=== PATIENT | female | born 1985 | race Caucasian/White ===

== ENCOUNTER 2024-03-09 07:48 | Outpatient (CLI) | payer OTHER, SELFPAY ==
--- NOTE | ~2024-03-09 | US_ITS ---
Limited Abdominal Sonogram: Real-time sonographic imaging of the right upper quadrant was performed. Clinical History: Right upper quadrant pain Findings: The liver appears echogenic, with no evidence of mass lesion or bile duct dilatation. Main portal vein demonstrates normal direction of flow. The gallbladder is well distended, and-is probabl y 5 mm gallbladder wall polyp. The common bile duct measures 4 mm. The visualized pancreas, aorta, a nd IVC are unremarkable. Right kidney measures 9.4 cm in length, without evidence of hydronephrosis o r renal stone. Impression: Diffuse fatty infiltration of the liver. Probable 5 mm gallbladder wall polyp. Reviewed, dictated and finalized at location M. AL RESIDENT Impression: Diffuse fatty infiltration of the liver. Probable 5 mm gallbladder wall polyp.
== END 2024-03-09 07:49 | disposition home or self-care (01) ==
LOC: MICIMG 07:53
DX: R10.11 Right upper quadrant pain (principal); K76.0 Fatty (change of) liver, not elsewhere classified
CPT/HCPCS: 76705

== ENCOUNTER 2024-11-21 18:06 | Emergency (ER) | payer OTHER, SELFPAY ==
[2024-11-21] VITALS (7 sets, daily range): BP systolic 118–135; BP diastolic 64–76; PULSE 64–70; RESP 12–19; TEMP 36.8; O2SAT 100
--- NOTE | ~2024-11-21 | XR_ITS ---
EXAMINATION: XR chest 2V Exam Date/Time: 11/21/2024 18:41 CDT HISTORY: cp Comparison: None. RESULT: Lines, tubes, and devices: None. Lungs and pleura: Clear. Cardiomediastinal silhouette: Normal. Other: No acute osseous or upper abdominal finding. IMPRESSION: No acute cardiopulmonary process. Reviewed, dictated and finalized at location K.
--- OUTSIDE RECORDS SUMMARY | 2024-11-21 18:10 | XMS_ITS | Clinical Summary ---
Author Organization [facility] Address [address] [facility] [place] [address] Care Team Providers Care Transit Bus Operator Name Role Phone No, Physician Primary Care Provider [phone] Allergies No known active allergies Medications acetaminophen (TYLENOL) 500 mg tablet Take 1 tablet (500 mg total) by mouth daily as needed 04/19/2023 Active multivitamin tablet Take 1 tablet by mouth daily Active Active Problems Problem Noted Date Diagnosed Date Gallbladder polyp 10/29/2024 Encounters Date Type Department Care Team Description 11/21/2024 3:30 PM CDT Office Visit [facility] Care at [address] [address] Qing Mariano PA Other chest pain (Primary Dx); Shortness of breath 11/16/2024 10:45 AM CDT Office Visit [facility] at [address] [address] Dia Kinney NP Right foot pain (Primary Dx) 11/12/2024 9:00 AM CDT Ancillary Procedure [facility] Medical [facility] Imaging at [address] [address] Pain in toe of right foot from Last 3 Months Social History Tobacco Use Types Packs/Day Years Used Date Smoking Tobacco: Never Assessed Personal Safety Answer Date Recorded Have you ever been in or are you currently in a harmful physical or emotional relationship or is someone making you feel afraid or unsafe? 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 Gender Identity Not on file Sexual Orientation Not on file Obstetrics History Last Filed Vital Signs Vital Sign Reading Time Taken Comments Blood Pressure 120/74 11/21/2024 3:24 PM CDT Pulse 70 11/21/2024 3:24 PM CDT Temperature 36.5 C (97.7 F) 11/21/2024 3:24 PM CDT Respiratory Rate 16 11/21/2024 3:24 PM CDT Oxygen Saturation 99% 11/21/2024 3:24 PM CDT Inhaled Oxygen Concentration - - Weight 57.2 kg (126 lb) 11/21/2024 3:24 PM CDT Height 157.5 cm (5' 2) 11/16/2024 10:50 AM CDT Body Mass Index 23.05 11/16/2024 10:50 AM CDT Plan of Treatment Health Maintenance Due Date Last Done Comments Breast Cancer Screening-Mammogram 1984 Cervical Cancer Screening 1984 Depression Screening 1984 Hepatitis C Screening 1984 Varicella Vaccines (1 of 2 - 13+ 2-dose series) 1997 Hepatitis B Screening 2002 Regular Well Visit/Exam 18-64 2002 HPV Vaccines (1 - 3-dose SCD M series) 07/30/2011 Influenza Vaccine (#1) 2024 DTaP/Tdap/Td Vaccine (2 - Td or Tdap) 12/01/2033 12/02/2023 Pneumococcal vaccine <65 Aged Out No longer eligible based on patient's age to complete this topic Procedures Procedure Name Priority Date/Time Associated Diagnosis Comments XR TOE GREAT RIGHT Schedule Routine, Read Routine (OP Routine) 11/12/2024 8:41 AM CDT Pain in toe of right foot from Last 3 Months Results * XR Toe Great Right Minimum 2 Views (11/12/2024 8:41 AM CDT) Anatomical Region Laterality Modality Lower Extremities, Foot, Toes Right Di gital Radiography 11/12/2024 10:0 8 AM CDT Narrative 11/12/2024 10:11 AM CDT EXAM DESCRIPTION: XR TOE GREAT RIGHT MINIMUM 2 VIEWS REASON FOR STUDY: pain Pt complains of right great toe pain for a week with redness. No known injury. No prior surgery to the foot. TECHNIQUE: 3 radiographic view(s) of the right great toe . COMPARISON: None FINDINGS: BONES/JOINTS: There is no acute fracture, malalignment or osseous abnormality. The joint spaces are normal. SOFT TISSUES: Within normal limits. IMPRESSION: No definite acute bony abnormality in the right great toe. THIS IS AN ELECTRONICALLY VERIFIED FINAL REPORT 11/12/2024 10:11 AM - Electronically signed by Edmund Rodríguez M.D. RB T: Report ID: [id number] Reading Location: [id number] Procedure Note Edmund Rodríguez MD - 11/12/2024 EXAM DESCRIPTION: XR TOE GREAT RIGHT MINIMUM 2 VIEWS REASON FOR STUDY: pain Pt complains of right great toe pain for a week with redness. No knowninjury. No prior surgery to the foot. TECHNIQUE: 3 radiographic view(s) of the right great toe . COMPARISON: None FINDINGS: BONES/JOINTS: There is no acute fracture, malalignment orosseous abnormality. The joint spaces are normal. SOFT TISSUES: Within normal limits. IMPRESSION: No definite acute bony abnormality in the right great toe. THIS IS AN ELECTRONICALLY VERIFIED FINAL REPORT 11/12/2024 10:11 AM - Electronically signed by Edmund Rodríguez M.D. RB T: Report ID: [id number] Reading Location: [id number] us Maribell Balbuena ECHO VASC TECH IMG XR PROCEDURES Final Res ult from Last 3 Months Insurance [facility] STUDENT RESOURCES CHOICE PLUS [facility] HMO/PPO Address: [facility] [id number] [place] [address] Care Teams Transit Bus Operator Relationship Specialty Start Date End Date No, Physician PCP - General 04/20/23
--- OUTSIDE RECORDS SUMMARY | 2024-11-21 18:10 | XMS_ITS | Clinical Summary ---
Author Organization [facility] [employer] Address [address] [facility] [place] [address] Care Team Providers Care Lead Enterprise Architect Name Role Phone Unknown, Provider Primary Care Provider Unavaila ble Source Comments [facility] [employer],non-owned Affiliates and Associated Physician Practices is amultiple site organization consisting of ambulatory clinics and hospital sitesin [place], [place], [place] and [place]. This disclosure is being madepursuant to the Care Everywhere program and may not contain all information available regarding this patient. Last updated 18.[facility] [employer] Allergies No known active allergies Medications * Be aware that medications may not be up to date on this document. Alwaysverify current medications with the patient. Multiple Vitamin (Daily Vites) TABS Take 1 (one) tablet by mouth once daily Active acetaminophen (Tylenol) 500 MG tablet Take 1 (one) tablet by mouth once daily as needed 04/19/2023 Active Active Problems Problem Noted Date Diagnosed Date Gallbladder polyp 10/29/2024 Encounters Date Type Department Care Team Description 11/01/2024 8:00 AM CDT Office Visit [facility] - General Surgery [address], [address] [place] [address] Makenzie Riggins MD Gallbladder polyp (Primary Dx) 11/01/2024 Travel from Last 3 Months Social History Tobacco Use Types Packs/Day Years Used Date Smoking Tobacco: Never Passive Smoke Exposure: Never Smokeless Tobacco: Never Tobacco Cessation:Counseling Given: Not Answered Alcohol Use Standard Drinks/Week Comments Never 0 (1 standard drink = 0.6 oz pur e alcohol) Comments Unknown Sex and Gender Information Value Date Recorded Sex Assigned at Not on file Legal Sex Female 11:54 AM WORKFORCE MANAGEMENT ANALYST Gender Identity Not on file Sexual Orientation Not on file Last Filed Vital Signs Vital Sign Reading Time Taken Comments Blood Pressure 111/72 11/01/2024 8:02 AM CDT Pulse 60 11/01/2024 8:02 AM CDT Temperature 37 C (98.6 F) 11/01/2024 8:02 AM CDT Respiratory Rate 18 04/16/2024 8:55 AM WORKFORCE MANAGEMENT ANALYST Oxygen Saturation 97% 11/01/2024 8:02 AM CDT Inhaled Oxygen Concentration - - Weight 57.6 kg (127 lb) 11/01/2024 8:02 AM CDT Height 157.5 cm (5' 2) 11/01/2024 8:02 AM CDT Body Mass Index 23.23 11/01/2024 8:02 AM CDT Plan of Treatment Health Maintenance Due Date Last Done Comments LIPID TESTING 1984 MAMMOGRAM 1984 HIV SCREENING 07/30/1999 HEPATITIS C SCREENING 07/25/2002 DTAP/TDAP/TD VACCINES (1 - Tdap) 07/30/2003 HEPATITIS B VACCINE (1 of 3 - 19+ 3-dose series) 07/30/2003 HPV VACCINE (1 - 3-dose SCDM series) 07/30/2011 COVID-19 VACCINE ( - 2023-2 5 season) 2023 DEPRESSION SCREENING 04/25/2024 INFLUENZA VACCINE (#1) 2024 02/19/2021 PAP SMEAR 08/03/2025 08/03/2022 ZOSTER VACCINE (1 of 2) 2034 HIB VACCINE Aged Out No longer eligi ble based on patient's age to complete this topic MENINGOCOCCAL (Group B) VACC INE SHARED DECISION-MAKING Aged Out No longer eligibl e based on patient's age to complete this topic MENINGOCOCCAL GROUPS A/C/Y/W VACCINE Aged Out No longer eligible b ased on patient's age to complete this topic PNEUMOCOCCAL VACCINE Aged Out No long er eligible based on patient's age to complete this topic Insurance [facility] Care Teams Lead Enterprise Architect Relationship Specialty Start Date End Date Unknown, Provider PCP - General 06/17/24
--- OUTSIDE RECORDS SUMMARY | 2024-11-21 18:10 | XMS_ITS | Encounter Summary ---
Author Organization [facility] Address [address] [place] [address] Care Team Providers Care Dispensing Optician Name Role Phone No, Physician Primary Care Provider Reason for Visit * Reason Comments Chest Pain Chest pain and SOB t hat woke up last PM and reports her whole body was shaking and these sxs lasted a couple minutes. 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 Gender Identity Not on file Sexual Orientation Not on file documented as of this encounter Last Filed Vital Signs Vital Sign Reading Time Taken Comments Blood Pressure 120/74 11/21/2024 3:24 PM CDT Pulse 70 11/21/2024 3:24 PM CDT Temperature 36.5 C (97.7 F) 11/21/2024 3:24 PM CDT Respiratory Rate 16 11/21/2024 3:24 PM CDT Oxygen Saturation 99% 11/21/2024 3:24 PM CDT Inhaled Oxygen Concentration - - Weight 57.2 kg (126 lb) 11/21/2024 3:24 PM CDT Height - - Body Mass Index 23.05 11/16/2024 10:50 AM CDT documented in this encounter Progress Notes * Qing Mariano PA - 11/21/2024 3:30 PM CDT Images from the original note were not included. Subjective/Objective Patient ID: Rita Rivas is a 39 y.o. female. This patient has verbally consented to recording this visit in order to utilize AI technology in generating this note. Chief Complaint Chest Pain (Chest pain and SOB that woke up last PM and reports her whole body was shaking and these sxs lasted a couple minutes. /Had another episode of just SOB an hour later that lasted about 30 minutes /Reports she had a headache a couple days before this occurred and reports she has a new stressor in her life ) History of Present Illness Rita Rivas is a 39 year old female who presents with chest pain and shortness of breath. Chest pain and dyspnea - Sudden onset of chest pain and shortness of breath occurred last night, waking her from sleep - Chest pain lasted approximately five minutes, severity 6/10 - Shortness of breath persisted for about thirty minutes, accompanied by whole body shaking - This morning, difficulty breathing while eating breakfast, preventing her from going to school and performing usual routines - Shortness of breath remains present, especially with deep inspiration - No current chest pain - No palpitations - No radiation of chest pain to jaw or arm Headache and associated symptoms - Severe headache a few days ago, starting on the sides of the head and moving to the forehead - Headache lasted two days - 500 mg Tylenol provided some relief - Brief episodes of dizziness during headache - No vision changes, numbness, tingling, or chest pain associated with headache Review of Systems All other systems reviewed and are negative. Physical Exam Physical Exam Constitutional: Appearance: Normal appearance. HENT: Head: Normocephalic and atraumatic. Right Ear: External ear normal. Left Ear: External ear normal. Nose: Nose normal. Mouth/Throat: Pharynx: Oropharynx is clear. Eyes: Pupils: Pupils are equal, round, and reactive to light. Cardiovascular: Rate and Rhythm: Normal rate and regular rhythm. Pulmonary: Effort: Pulmonary effort is normal. Breath sounds: Normal breath sounds. Musculoskeletal: General: Normal range of motion. Cervical back: Normal range of motion. Skin: General: Skin is warm and dry. Neurological: General: No focal deficit present. Mental Status: She is alert and oriented to person, place, and time. Psychiatric: Mood and Affect: Mood normal. Behavior: Behavior normal. Vitals: 11/21/24 1524 BP: 120/74 Pulse: 70 Resp: 16 Temp: 36.5 ??C (97.7 ??F) SpO2: 99% Weight: 57.2 kg (126 lb) No results found. No past medical history on file. Current Outpatient Medications: multivitamin tablet, Take 1 tablet by mouth daily, Disp: , Rfl: acetaminophen (TYLENOL) 500 mg tablet, Take 1 tablet (500 mg total) by mouth daily as needed (Patient not taking: Reported on 11/21/2024), Disp: , Rfl: No Known Allergies Social History Tobacco Use Smoking status: None Smokeless tobacco: None Substance and Sexual Activity Drug use: None Sexual activity: None Alcohol Use: Not on file History reviewed. No pertinent surgical history. Procedures Assessment/Plan Results No results found for this or any previous visit (from the past 4 hours). Assessment & Plan Acute chest pain and shortness of breath Acute chest pain last night around 0100 which woke her from sleep last night with associated dyspnea. Potential cardiac etiology given family history including father with dysrhythmias and pacemaker.Chest pain resolved at this time but sob remains persistent. Patient referred to ED for further evaluation and management, r/o cardiac etiology of chest pain and persistent shortness of breath. There are no diagnoses linked to this encounter. Disposition [facility] Cosigned by Steve Fields MD at 11/21/2024 4:23 PM CDT documented in this encounter Plan of Treatment Not on file documented as of this encounter Visit Diagnoses Diagnosis Other chest pain- Primary Shortness of breath documented in this encounter Care Teams Dispensing Optician Relationship Specialty Start Date End Date No, Physician PCP - General 04/20/23 documented as of this encounter
--- OUTSIDE RECORDS SUMMARY | 2024-11-21 18:10 | XMS_ITS | Referral Summary ---
Author Organization [facility] Address [address] [facility] [place] [address] Care Team Providers Care R&D Lab Technician Name Role Phone No, Physician Primary Care Provider Encounters Date Type Department Care Team Description 11/21/2024 3:30 PM CDT Office Visit [facility] at [address] [address] Qing Mariano PA Other chest pain (Primary Dx); Shortness of breath 11/16/2024 10:45 AM CDT Office Visit [facility] at [address] [address] Dia Kinney NP Right foot pain (Primary Dx) 11/12/2024 9:00 AM CDT Ancillary Procedure [facility] Imaging at [address] [address] Pain in toe of right foot from Last 3 Months Allergies No known active allergies Medications acetaminophen (TYLENOL) 500 mg tablet Take 1 tablet (500 mg total) by mouth daily as needed 04/19/2023 Active multivitamin tablet Take 1 tablet by mouth daily Active Active Problems Problem Noted Date Diagnosed Date Gallbladder polyp 10/29/2024 Social History Tobacco Use Types Packs/Day Years [...] on file 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 RB T: Report ID: [id number] Reading Location: [id number] Procedure Note Edmund Rodríguez MD - 11/12/2024 [...] Edmund Rodríguez M.D. RB T: Report ID: [id number] Reading Location: [id number] us Maribell Balbuena MERCHANDISE PRESENTATION MANAGER IMG XR PROCEDURES Final Res ult from Last 3 Months Insurance [facility] ST[employer]ENT [employer] CHOICE PLUS Care Teams R&D Lab Technician Relationship Specialty Start Date End Date No, Physician PCP - General 04/20/23
--- NOTE | 2024-11-21 18:11 | ECG_ITS ---
Test Date: 2024-11-21 18:20:47 Measurements Intervals [place] Rate: 66 P: 72 OK: 124 QRS: 60 QRSD: 81 T: 33 QT: 383 QTc: 403 Interpretive Statements SINUS RHYTHM No previous ECG available for comparison Electronically Signed On 11-22-2024 11:02:41 CDT by Wong Garces M.D.
--- NOTE | 2024-11-21 18:20 | ED_ITS ---
HPI - Chest Pain General Chief Complaint: Chest Pain Stated Complaint: chest pain Time Seen by Provider: 11/21/24 18:11 Source: patient Mode of arrival: ambulatory Limitations: no limitations History of Present Illness HPI narrative: Patient is a 39-year-old female who presents the ED with report of chest pain. Patient reports having brief episode of midsternal chest pain last night while laying in bed. States the chest pain was very brief, only lasted few minutes before resolving. She also felt short of breath at that time. States this lasted for approximately 30 minutes before resolving as well. She did feel slightly short of breath this morning, but denies any further chest pain. Denies recent cough or cold symptoms. Denies pain or swelling in her legs. Denies fevers. Denies previous cardiac issues. Denies history of HTN, HLD, DM, smoking. Does have FHx of CAD in her father, unsure of the age. Related Data Home Medications ?Medication ?Instructions ?Recorded ?Confirmed ?Last Taken ?Type No Home Medications 03/29/24 04/10/24 Unknown History Allergies Allergy/AdvReac Type Severity Reaction Status Date / Time No Known Allergies Allergy Verified 04/09/24 10:30 Review of Systems 2 Review of Systems: All systems reviewed & are unremarkable except as noted in HPI. All systems reviewed & are unremarkable except as noted in HPI and below PMFSH Past Medical History Medical History Polyp of gallbladder Gallbladder attack RUQ pain Family History Family History Father Heart disease Social History Social History Smoking status: Never smoker Alcohol intake: never Substance use: never Do You Feel Safe in your Home?: Yes Lack of Transportation: No Lack of Food: Never True Current Housing: I Have Housing Concerned About Future Housing: No Difficulty Paying Gas/Electric Bills: No Difficulty Paying for Meds: No Currently Unemployed: No Education: Master's Degree or Higher Difficulty w/ Childcare or Family Care: No Occupation/Education: occupation 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 HEAD: Normocephalic, atraumatic. RESPIRATORY: Airway patent, respirations nonlabored. Clear to auscultation bilaterally, no rales, rhonchi, wheezing. CARDIOVASCULAR: Regular rate and rhythm without murmurs, rubs, or gallops. ABDOMINAL: Soft, nontender, nondistended. Normoactive BS. MUSCULOSKELETAL: Moves all extremities. No gross deformities. Mild tenderness to palpation throughout midsternal anterior chest wall. No calf tenderness. No peripheral edema. SKIN: Warm, dry, normal color. NEURO: A&O X3. Speech clear. No ataxic movements. PSYCHIATRIC: Appropriate mood and affect. Normal interaction. Course Vital Signs Vital signs: Vital Signs Temperature 98.2 F 11/21/24 18:15 Pulse Rate 70 11/21/24 18:15 Respiratory Rate 16 11/21/24 18:15 Blood Pressure 135/64 11/21/24 18:15 Pulse Oximetry 100 11/21/24 18:15 Oxygen Delivery Room Air 11/21/24 18:15 Temperature 98.2 F 11/21/24 18:15 Pulse Rate 64 11/21/24 19:31 Respiratory Rate 14 11/21/24 19:31 Blood Pressure 118/76 11/21/24 19:31 Pulse Oximetry 100 11/21/24 19:16 Oxygen Delivery Room Air 11/21/24 18:44 MDM - Chest Pain MDM Narrative Medical decision making narrative: EKG without ischemic changes. Normal sinus rhythm. Troponin undetectable. Chest x-ray is clear. D-dimer WNL. Otherwise PERC negative. No signs of sx's of DVT on exam. Basic laboratory studies are otherwise unremarkable. HEART score =1 based on FHx. No other significant RFs for ACS. Overall workup reassuring. Suspicious for musculoskeletal etiology, versus possible anxiety. Patient does admit that she has been doing a new workout routine recently. Recommended Tylenol/ibuprofen as needed. Recommended follow- up with primary care doctor for further evaluation. Patient given return precautions. She is in agreement with plan. Feels comfortable going home. Discharged in stable condition. Medical Records Data Attestation: I reviewed the patient's medical records. Lab Data Attestation: I reviewed the patient's lab results. 11/21/24 18:43 11/21/24 18:43 Labs: Lab Results 11/21/24 Range/Units 18:43 WBC 9.4 (4.5-10.0) K/mm3 RBC 4.42 (4.2-5.4) M/mm3 Hgb 13.1 (12.0-15.0) g/dL Hct 40.9 (37.0-47.0) % MCV 92.5 (80-100) fl MCH 29.6 (26-34) pg MCHC 32.0 (32-36) g/dl RDW 12.3 (11.5-14.5) % Plt Count 279 (150-375) k/mm3 MPV 9.8 (7.4-10.4) fl Immature Gran % (Auto) 0.2 (0-0.5) % Neut % (Auto) 69.6 (45.5-73.1) % Lymph % (Auto) 20.1 (18.3-44.2) % [place] % (Auto) 7.7 (2.6-8.5) % Eos % (Auto) 1.8 (0-4.4) % Baso % (Auto) 0.6 (0.2-1.2) % Lymph # (Auto) 1.89 (0.9-3.2) K/mm3 [place] # (Auto) 0.7 H (0.1-0.6) K/mm3 Eos # (Auto) 0.2 (0-0.3) K/mm3 Baso # (Auto) 0.1 (0.0-0.1) K/mm3 Abs Immat Gran (auto) 0.02 (0.00-0.031) K/mm3 Absolute Neuts (auto) 6.5 (1.3-6.7) K/mm3 Absolute Nucleated RBC 0.000 (0.0-0.012) K/mm3 Nucleated RBC % 0.0 (0.0-0.2) % PT 13.8 (11.1-14.7) Seconds INR 1.0 APTT 30.6 (22.3-36.8) Seconds D-Dimer 0.28 (<0.48) ug/mL Sodium 137 (137-145) mmol/L Potassium 3.7 (3.4-5.0) mmol/L Chloride 104 (98-107) mmol/L Carbon Dioxide 25 (22-30) mmol/L Anion Gap 8 (4-12) mmol/L BUN 9 (7-17) mg/dL Creatinine 0.81 (0.7-1.0) mg/dL Estim Creat Clear Calc 64 ml/min Estimated GFR > 60 (59 - ) Glucose 106 (65-110) mg/dL Calcium 9.1 (8.4-10.2) mg/dL Total Bilirubin 0.7 (0.2-1.3) mg/dL AST 24 (14-36) U/L ALT 12 (6-35) U/L Alkaline Phosphatase 44 (38-126) U/L Troponin I < 0.012 (0.000-0.034) ng/mL Total Protein 7.9 (6.3-8.2) g/dL Albumin 4.3 (3.5-5.1) g/dL Lipase 77 (23-300) U/L Imaging Data Attestation: I personally reviewed and interpreted this imaging study as follows: Radiologist's impression: ITS Impressions Chest X-Ray 11/21/24 19:01 IMPRESSION: No acute cardiopulmonary process. ECG Data EKG #1: Attestation: I personally reviewed and interpreted this ECG as follows: ECG completion date: 11/21/24 ECG completion time: 18:20 EKG Interpretation: normal rate (66), sinus rhythm and no ST changes Discharge Plan Discharge Clinical Impression: Atypical chest pain Patient Disposition: Home Condition: Stable Instructions: Antibiotic Form, Angina (ED), Chest Pain (ED) Additional Instructions: Your workup here was reassuring against a cardiac cause of your chest pain. You may continue Tylenol, ibuprofen as needed for pain. Follow-up with your primary care doctor for further evaluation. Return to the ED if you experience worsening or severe pain, severe difficulty breathing, unable to keep down food or drink, pain or swelling in your legs, or any other symptoms of concern. Patient Language: Polish Prescriptions: No Action No Home Medications Follow-up/Referrals: PHYSICIAN NOT ON STAFF,NONSTAFF [Non-Staff] - Time of Disposition: 19:42 Quality HEART score for chest pain patients History: slightly suspicious ECG: normal Age: < or = to 45 years Risk factors: 1 or 2 risk factors Troponin: < or = to 1x normal limit Heart score: 1
[2024-11-21 18:48] LABS: Hematocrit 40.9 % (37.0-47.0); Hemoglobin 13.1 g/dL (12.0-15.0); Immature Granulocyte Percent A 0.2 % (0-0.5); Lymphocytes Absolute Auto 1.89 K/mm3 (0.9-3.2); Mean Corpuscular HGB Conc 32.0 g/dl (32-36); Mean Corpuscular Hemoglobin 29.6 pg (26-34); Mean Corpuscular Volume 92.5 fl (80-100); Nucleated Red Blood Cells Absolute Auto 0.000 K/mm3 (0.0-0.012); Nucleated Red Blood Cells Perc 0.0 % (0.0-0.2); Platelet Count Result 279 k/mm3 (150-375); Red Blood Count 4.42 M/mm3 (4.2-5.4); White Blood Count 9.4 K/mm3 (4.5-10.0)
[2024-11-21 18:58] LABS: Alanine Aminotransferase 12 U/L (6-35); Albumin Level 4.3 g/dL (3.5-5.1); Alkaline Phosphatase 44 U/L (38-126); Anion Gap 8 mmol/L (4-12); Aspartate Amino Transferase 24 U/L (14-36); Bilirubin,Total 0.7 mg/dL (0.2-1.3); Blood Urea Nitrogen 9 mg/dL (7-17); Calcium 9.1 mg/dL (8.4-10.2); Carbon Dioxide 25 mmol/L (22-30); Chloride 104 mmol/L (98-107); Estimated CRCL calculation 64 ml/min; Estimated Glomerular Filt Rate > 60; Glucose 106 mg/dL (65-110); Lipase 77 U/L (23-300); Potassium 3.7 mmol/L (3.4-5.0); Sodium 137 mmol/L (137-145); Total Protein 7.9 g/dL (6.3-8.2)
[2024-11-21 19:10] LABS: Troponin I < 0.012 ng/mL (0.000-0.034)
[2024-11-21 19:25] LABS: INR 1.0; Prothrombin Time 13.8 Seconds (11.1-14.7)
[2024-11-21 19:27] LABS: Partial Thromboplastin Time 30.6 Seconds (22.3-36.8)
== END 2024-11-21 20:05 | disposition home or self-care (01) ==
PROVIDERS: Emergency Provider Physician Assistant
DX: R07.89 Other chest pain (principal)
CPT/HCPCS: 36415; 71046; 80053; 83690; 84484; 85025; 85380; 85610; 85730; 93005; 99284